=== PATIENT | male | born 1995 | race Caucasian/White ===

== ENCOUNTER 2016-05-03 18:10 | Emergency (ER) | payer BC ==
[2016-05-03] MEDS ORDERED: diphenhydrAMINE 50 MG/1 ML VIAL IVP ONE (18:31)
[2016-05-03] MEDS ORDERED: Sodium Chloride 0.9% 1,000 ML PRIMARY IV ONE (18:31)
[2016-05-03] MEDS ORDERED: NORMAL SALINE 10 ML SYRINGE FLUSH IVP PRN (18:31)
[2016-05-03] MEDS ORDERED: Metoclopramide Inj 10 MG/2 ML VIAL IVP ONE (18:31)
[2016-05-03] MEDS ORDERED: KETOROLAC 30 MG/1 ML VIAL IVP ONE (18:31)
[2016-05-03 18:52] LABS: BLOOD UREA NITROGEN 11 mg/dL (7-22); BUN/CREATININE RATIO 12.22 (6-20); CALCIUM 9.6 mg/dL (8.7-10.7); EST GLOMERULAR FILTRATION > 60 (>60 ml/min/1.73m(2)); SERUM ALBUMIN 4.9 g/dL (3.5-4.8)
[2016-05-03 18:55] LABS: BASOPHILS # (AUTO) 0.02 10*3/UL; BASOPHILS % (AUTO) 0.3 % (0-1); EOSINOPHILS # (AUTO) 0.17 10*3/UL; EOSINOPHILS % (AUTO) 2.7 % (0-8); HEMOGLOBIN 16.4 g/dL (14.0-18.0); LYMPHOCYTES # (AUTO) 2.37 10*3/uL; MEAN CORPUSCULAR HEMOGLOBIN 31.1 PG (27-31); MEAN CORPUSCULAR HGB CONC 35.7 g/dL (33-37); MEAN PLATELET VOLUME 11.6 FL (7.4-12.2); MONOCYTES # (AUTO) 0.51 10*3/UL (0.3-0.8); NEUTROPHILS % (AUTO) 51.7 % (50-80); RED BLOOD COUNT 5.27 10^6/uL (4.70-6.10)
[2016-05-03 18:56] LABS: PLATELET MORPHOLOGY COMMENT NORMAL MORPHOLOGY (NORM); RBC MORPHOLOGY COMMENT NORMAL MORPHOLOGY (NORM); WBC MORPHOLOGY COMMENT NORMAL MORPHOLOGY (NORM)
--- NOTE | 2016-05-03 19:14 | DI ---
CT HEAD SCAN WITHOUT IV CONTRAST, 05/03/2016 6:32 PM : Clinical History: Headache. Previous Exam: None at this facility. Scans are obtained from the foramen magnum to the vertex without IV contrast. The 4th, 3rd, and lateral ventricles are of normal size, shape, position, and contour for the patient 's age. There are no abnormal areas of increased or decreased density. Specifically, there is no evid ence of an acute intracranial hemorrhagic focus. The right cerebellar tonsil descends to the level of the foramen magnum but does not extend below it. The left cerebellar tonsil is in the standard anato emma position. There are no extracerebral mantles or shift of the midline structures. Bone window eval uation is normal. The paranasal sinuses are normal. READING: Normal non contrast CT head scan.
[2016-05-03 19:49] LABS: AMPHETAMINE SCREEN NEGATIVE (NEG); BARBITURATE SCREEN, URINE NEGATIVE (NEG); CANNABINOID SCREEN,URINE NEGATIVE (NEG); COCAINE SCREEN NEGATIVE (NEG); METHADONE URINE SCREEN NEGATIVE (NEG); METHAMPHETAMINES SCREEN,URINE NEGATIVE (NEG); OPIATE SCREEN,URINE NEGATIVE (NEG); URINE SAMPLE TYPE VOIDED SPECIMEN; URINE SPECIFIC GRAVITY - MAN 1.018
[2016-05-03 20:03] VITALS: RESP 16; TEMP 99.1
--- NOTE | 2016-05-03 21:29 | PDOC ---
Headache HPI - General Chief Complaint: Headache Stated Complaint: GONZALEZ W/VISION CHANGE Date Seen by Provider: 05/03/16 Time Seen by Provider: 18:20 Source: POSITIVE: Patient, Other (Parents and aunt) Exam Limitations: POSITIVE: No limitations Nurse's Notes Reviewed & Considered: Yes - History of Present Illness Initial Comments: The patient is a 20-year-old male. He is brought to the emergency room by his aunt area around 2:30 PM this afternoon he was talking with a coworker and he developed some "blurriness"of vision in his right eye. He states he also noted some "zig-zag" lines in the field of vision of his right eye any had a vague numbness to his right hand. About 30 minutes after the development of these symptoms he developed a left temporal headache. He states that on the onset of his headache the intensity of his pain was an 8 or 9 on a scale of 10. His headache is now rated as a 2 on a scale of 10. Patient states he has had some intermittent headaches in the past, but without any associated neurologic symptoms. He has no allergies and no known medical problems. He states he does not smoke or drink alcohol. He denies use of any illegal substances. Body Location Affected: REPORTS: Head Timing: REPORTS: Abrupt, Improved Duration: 4-6 hours Severity: Moderate Quality: REPORTS: "Pain" (Left temporal headache) Context: DENIES: CO Exposure, Tick Bite, Insect Bite, Recent Head Injury, Other Associated Symptoms: REPORTS: [place] Preceding, Tingling (Left arm). DENIES: Fever, Chills, Sweating, Problems with Vision, Sensitivity to Light, Visual Disturb Preceding, Typical of Prior Aura(s), Nausea, Vomiting, Neck Pain, Stiffness, Speech Problems, Weakness, Trouble Walking, Numbness, Dizziness, Lightheadedness, Other Exacerbated by: DENIES: Light, Noise, Movement, Position Any Prior Injuries Related to Current Complaint?: No - Patient Home Medications Home Medications: Home Medications NK [No Home Medications Reported] 05/03/16 - Patient Allergies Allergies/Adverse Reactions: Allergies Allergy/AdvReac Type Severity Reaction Status Date / Time No Known Drug Allergies Allergy NOT Verified 05/03/16 18:26 APPLICABLE Past Medical History - heen HEENT History: Denies History Cardiovascular History: Denies History Respiratory History: Denies History Gastrointestinal History: Denies History Genitourinary History: Denies History Endocrine History: Denies History Musculoskeletal History: Denies History Neurological History: Denies History Blood Disorders: Denies History Psychiatric History: Denies History Cancer History: Denies History In Past Year Been Physically Harmed or Verbally Threatened: No History of MDRO: No Tobacco Use: Never Smoker Alcohol Use: None Substance Use Type: None Previous Surgical History: No Significant Family History: No pertinent family hx Past Medical History Reviewed: Reviewed - No Changes ROS - Limitations ROS Limitations: No Limitations Constitution: REPORTS: Denies Symptoms Cardiovascular: REPORTS: Denies Cardiac Symptoms Respiratory: REPORTS: Denies Resp Symptoms Neurological: REPORTS: Headache, Tingling (See above) Gastrointestinal: REPORTS: Denies GI Symptoms Endocrine: REPORTS: Denies Symptoms Musculoskeletal: REPORTS: Denies MS Symptoms Genitourinary: REPORTS: Denies Symptoms Eyes: REPORTS: Denies Symptoms ENT: REPORTS: Denies Symptoms Skin: REPORTS: Denies Skin Symptoms Lympathic: REPORTS: Denies Lympathic Symptoms Immunologic: POSITIVE: Denies Symptoms Psychiatric: POSITIVE: Denies Psych Symptoms Headache Exam - General Appearance General Appearance: POSITIVE: Alert, Cooperative, No Acute Distress, No Evidence of Trauma - HEENT Head / Face: POSITIVE: Atraumatic, Normal Inspection, No Facial Swelling Eyes: POSITIVE: Inspection Normal, PERRL, EOM's Intact, Eyelids Uninjured, Conjunctivae Uninjured, No Nystagmus, No Globe Trauma, Sclera Normal, Normal Fundoscopic Exam, Ant. Chamber Nml Inspect., No Papilledema Ears: POSITIVE: Ears Normal Inspection, TM Normal Inspection, Auricle Normal, External Canal Normal Nose: POSITIVE: Inspection Normal, No Apparent Trauma, Nares Normal, No CSF Leak Oropharynx: POSITIVE: External Inspection Nml, Pharynx Inspect. Nml, Airway Intact, Voice Normal, Moist Mucous Membranes, No Oral Injury, Lips Normal, Gums Normal, No Drooling, No Thrush, Normal Gag Reflex Dental: POSITIVE: No Dental Injury - Pupil Size Pupil Size: 3 mm: Bilateral (PERRLA) - Neck Neck: POSITIVE: Normal Inspection, Supple - Respiratory / CVS Respiratory / CVS: POSITIVE: Chest Non-Tender, No Respiratory Distress, Heart Sounds Normal, Regular Rate/Rhythm, Breath Sounds Normal Peripheral Pulses: Radial (R): 2+, Radial (L): 2+ - Abdomen Abdomen: Soft: (All Quadrants), Normal Bowel Sounds: (All Quadrants), Denies Tenderness: (All Quadrants), No Splenomegaly: (All Quadrants), No Hepatomegaly: (All Quadrants), No Guarding: (All Quadrants), No Rebound: (All Quadrants), No Palpable Pulse: (All Quadrants), No Palpabale Mass: (All Quadrants), No Distention: (All Quadrants), No Rigidity: (All Quadrants) - Skin Skin: POSITIVE: Intact, Normal Palpation - Extremities Extremity: Non-Tender: (All Extremities), Normal ROM: (All Extremities), Normal Inspection: (All Extremities) - Neuro / Psych Higher Functions: POSITIVE: Alert, Oriented x3, Normal Speech, Mood Appropriate , Affect Appropriate Cranial Nerves: POSITIVE: Normal As Tested, No Evidence of Acute CVA Cerebellar: POSITIVE: Normal As Tested Sensorimotor: POSITIVE: No Motor Deficits, No Sensory Deficits, Reflexes Normal Images - Head Head: 1 - Headache Headache Progress - Results Reviewed by me Xrays/CTs/US Reviewed by me: Yes Discussed with Radiologist: Yes Radiology Findings: CT scan head without contrast Lab Results Reviewed: Yes (all normal) Lab Results:: Laboratory Results 05/03/16 05/03/16 Range/Units 18:37 19:36 WBC 6.38 (4.8-10.8) 10^3/uL RBC 5.27 (4.70-6.10) 10^6/uL Hgb 16.4 (14.0-18.0) g/dL Hct 46.0 (42.0-52.0) % MCV 87.3 (80-90) FL MCH 31.1 H (27-31) PG MCHC 35.7 (33-37) g/dL RDW Std Deviation 38.6 L (39-50) fL RDW Coeff of Ana 12.1 (11.5-14.5) % Plt Count 174 (140-350) 10*3/uL MPV 11.6 (7.4-12.2) FL Immature Gran % (Auto) 0.2 (0-5) % Neut % (Auto) 51.7 (50-80) % Lymph % (Auto) 37.1 (10-50) % [place] % (Auto) 8.0 (5-15) % Eos % (Auto) 2.7 (0-8) % Baso % (Auto) 0.3 (0-1) % Immature Gran # (Auto) 0.01 10*3/UL Neut # (Auto) 3.30 10*3/UL Lymph # (Auto) 2.37 10*3/uL [place] # (Auto) 0.51 (0.3-0.8) 10*3/UL Eos # (Auto) 0.17 10*3/UL Baso # (Auto) 0.02 10*3/UL WBC Morphology Comment Normal morphology (NORM) Plt Morphology Comment Normal morphology (NORM) RBC Morph Comment Normal morphology (NORM) Sodium 141 (135-145) meq/L Potassium 3.8 (3.8-5.2) meq/L Chloride 104 (98-112) meq/L Carbon Dioxide 24 (23-33) meq/L Anion Gap 13 (5-20) BUN 11 (7-22) mg/dL Creatinine 0.9 (0.70-1.50) mg/dL Estimated GFR > 60 (>60 ml/min/1.73m(2)) BUN/Creatinine Ratio 12.22 (6-20) Glucose 104 (78-110) mg/dL Calculated Osmolality 290.0 (267-292) mOsm/kg Calcium 9.6 (8.7-10.7) mg/dL Total Bilirubin 0.6 (0.3-1.2) mg/dL AST 40 (21-57) IU/L ALT 47 (21-72) IU/L Alkaline Phosphatase 81 (38-126) IU/L Total Protein 8.0 (6.1-8.0) g/dL Albumin 4.9 H (3.5-4.8) g/dL Globulin 3.1 (2.50-4.10) g/dL Albumin/Globulin Ratio 1.50 (1.3-2.0) mg/g Ur Collection Type Voided specimen U Specif Grav (Refrac) 1.018 Urine Opiates Screen Negative (NEG) Ur Buprenorphine Negative (NEG) Ur Oxycodone Screen Negative (NEG) Urine Methadone Screen Negative (NEG) Ur Propoxyphene Screen Negative (NEG) Barbiturate Screen Negative (NEG) U Tricyclic Antidepress Negative (NEG) Phencyclidine Screen Negative (NEG) Amphetamines Screen Negative (NEG) U Methamphetamines Scrn Negative (NEG) Benzodiazepines Screen Negative (NEG) Cocaine Screen Negative (NEG) U Marijuana (THC) Screen Negative (NEG) - Patient's Progress Pain Medication Addressed: POSITIVE: Yes (Patient given a liter of normal saline and Toradol 30 mg IV and Benadryl 25 mg IV and Reglan 10 mg IV with essentially complete resolution of headache) School/Work Release Addressed: POSITIVE: Not Applicable Re-Examine Time:: 20:00 Re-Examine Comment: Headache essentially resolved on discharge. No neurologic symptoms on discharge. Status: POSITIVE: Improved, Pain Almost Comp Relieved - Consult Counseled: POSITIVE: Patient, Family, RE: Lab Results, RE: Radiology Results, RE : DX, RE: Need for F/U Patient Care Time - Estimated PCT Patient Care Time (In Minutes): 48 Vital Signs - Recent Vital Signs Vital Signs: Vital Signs (Last 8 hours) Temp Pulse Resp BP Pulse Ox 05/03/16 18:10 99.1 F 87 16 143/99 96 - VS Reviewed Vital Signs Reviewed: Yes Discharge Clinical Impression: Migraine Discharge Disposition: Discharged to Home Condition: Stable Patient Instructions Given at Discharge: Migraine Headache (ED) Additional Instructions: I believe your symptoms and your headache is due to migraine headaches. Your visual symptoms and your numbness were probably due to what is called an "aura" , which frequently precedes a migraine headache. Return anytime if condition worsens. Follow-up with your primary care provider. Rest tonight. Follow Up With: NONE,NONE [Primary Care Provider] - (Instructions as above. Follow-up with your primary care provider. Return here as necessary.)
== END 2016-05-03 20:12 | disposition home or self-care (01) ==
LOC: ER 18:10
DX: G43.009 Migraine without aura, not intractable, without status migrainosus (principal); H53.9 Unspecified visual disturbance
CPT/HCPCS: 70450; 80053; 80305; 85025; 96361; 96374; 96375; 99283 ×2; J1200; J1885; J2765; J7030